=== PATIENT | male | born 1955 | race Caucasian/White ===

== ENCOUNTER → 2019-06-10 | Outpatient (CLI) | payer BC ==
--- NOTE | 2019-06-10 15:11 | RAD ---
CHEST PA LATERAL History: Shortness of breath Comparison: None. Findings: Frontal and lateral views of the chest were obtained. Sternal wires are noted. Mediastinal clips noted. The cardiomediastinal silhouette is normal. Pulmonary vasculature is normal. No focal infiltrate. Minimal basilar atelectasis along the major fissures as suggested on the lateral view. Small bilateral pleural effusions are present. Slight pulmonary vasculature. There is no acute bone abnormality. IMPRESSION: Slight congestive heart failure and small pleural effusions. Minimal atelectasis. Electronically signed by: Saulo Rueda MD (06/10/2019 3:09 PM) [id number]
== END | disposition home or self-care (01) ==
LOC: RAD 14:49
PROVIDERS: ATTEND Family Medicine
DX: J90 Pleural effusion, not elsewhere classified (principal); I50.9 Heart failure, unspecified; J98.11 Atelectasis
CPT/HCPCS: 71046